=== PATIENT | female | born 1970 | race Caucasian/White ===

== ENCOUNTER 2018-01-24 06:55 | Day surgery (SDC) | payer OTHER ==
[~2018-01-24] VITALS: Ht 170.2 cm; Wt 65.3 kg
[~2018-01-24 06:55] MED LIST: CALC667C PO; CITA10TA4 PO; FOSR1000 CHEW; HYDR-3129 PO; LORA1TAB PO; NOVONP2 SQ; NOVORP2 SQ; OMEP40CA2 PO; ONDA4 PO; PRED1TAB PO; PROM1SUP12 PR; SENS30TA PO; SM A81CH CHEW; TRAM50TA PO; WARF5TAB PO
[2018-01-24] MEDS ORDERED: IOHEXOL 350 MG/ML 100 ML BTL (for Cath Lab) OTHER ONE (06:56)
[2018-01-24 07:23] VITALS: BP 246/85; PULSE 70; RESP 18; TEMP 98; O2SAT 100
[2018-01-24] MEDS ORDERED: SEVEL800 PO (07:42)
[2018-01-24] MEDS ORDERED: WARF-21 PO (07:42)
[2018-01-24] MEDS ORDERED: NOVONP2 SQ (07:42)
[2018-01-24] MEDS ORDERED: OXYC1TAB63 PO (07:42)
[2018-01-24] MEDS ORDERED: CALC0.25 PO (07:42)
[2018-01-24] MEDS ORDERED: HYDR200T3 PO (07:42)
[2018-01-24] MEDS ORDERED: NOVORP2 SQ (07:42)
[2018-01-24] MEDS ORDERED: ASPI81TA23 PO (07:42)
[2018-01-24] MEDS ORDERED: PROM25TA10 PO (07:42)
[2018-01-24] MEDS ORDERED: TRAM50TA PO (07:42)
[2018-01-24] MEDS ORDERED: SENS60TA PO (07:42)
[2018-01-24] MEDS ORDERED: AMLO5TAB2 PO (07:42)
[2018-01-24] MEDS ORDERED: LIDO5%T TOPICAL (07:42)
[2018-01-24] MEDS ORDERED: ATOR80TA45 PO (07:42)
[2018-01-24] MEDS ORDERED: LORA1TAB12 PO (07:42)
[2018-01-24] MEDS ORDERED: GABA300C5 PO (07:42)
[2018-01-24] MEDS ORDERED: ZOFR4TAB PO (07:42)
[2018-01-24] MEDS ORDERED: NS 1000P @30 MLS/HR (KVO) IV SCH (07:45)
[2018-01-24 07:49] LABS: AUTOMATED NEUTROPHIL # 4.3 TH/MM3 (1.8-7.7); BASOPHIL % 0.9 % (0.0-2.0); HEMOGLOBIN 9.2 GM/DL (11.6-15.3); LYMPH % 12.8 % (9.0-44.0); LYMPHOCYTE # 0.7 TH/MM3 (1.0-4.8); MEAN CORPUSCULAR HEMOGLOBIN 32.1 PG (27.0-34.0); MEAN CORPUSCULAR HGB CONC 32.7 % (32.0-36.0); MEAN PLATELET VOLUME 9.4 FL (7.0-11.0); MONOCYTE # 0.6 TH/MM3 (0-0.9); NEUT % 76.3 % (16.0-70.0); PLATELET COUNT 146 TH/MM3 (150-450); RED BLOOD COUNT 2.86 MIL/MM3 (4.00-5.30); RED CELL DISTRIBUTION WIDTH 19.9 % (11.6-17.2); WHITE BLOOD COUNT 5.6 TH/MM3 (4.0-11.0)
[2018-01-24 08:06] LABS: INTERNATIONAL NORMALIZED RATIO 1.3 RATIO; PROTHROMBIN TIME - PATIENT 13.5 SEC (9.8-11.6)
[2018-01-24 08:10] LABS: BICARBONATE 30.4 MEQ/L (21.0-32.0); CALCIUM 8.9 MG/DL (8.5-10.1); CREATININE 7.03 MG/DL (0.50-1.00)
[2018-01-24] MEDS ORDERED: HEPARIN-NS/PF INJ 1,500 ML ONE (08:50)
[2018-01-24] MEDS ORDERED: MIDAZOLAM HCL 2 MG/2 ML VIAL ONE (08:51)
--- NOTE | 2018-01-24 10:14 | CATHPROC ---
[employer] HIS Report Study Information Study Number Admission Scheduled Start Study Start [id number] Jan 24 2018 6:55AM 01/24/2018 Jan 24 2018 8:43AM [facility] Service Cardiac Catheterization Admit Source Facility Department Other [facility] - Project Consultant Physician and Clinical Staff Initial Mohinder Vasquez Electric Train Driver Alton RN, Flavio Recorder Danielle Guadalupe ,RT(R) ScrEmilee Anand,RT(R) Procedures Performed Procedure Location (Site) Vessel Name Coronary Angiograms LCA Left Coronary Coronary Angiograms RCA Right Coronary Coronary Angiograms SVG-OM CIRC Coronary Angiograms BARRERA BARRERA Wire insertion Fem Art (right) Femoral Art Wire insertion Fem Vein (right) Femoral Vein Equipment Time Monomer Recovery Supervisor Description Size Mfg Part Number Used/Scraped WIRE, WHISPER W/HYDROCOAT [id number] 09:29 [employer] 190CM Used 190CM *[id number] 08:55 ANDREW MORGAN SWAN CAROLYN CATHETER FR 7 Used *[id number] TRANSDUCER, TRUWAVE [id number] 08:55 ANDREW MORGAN * Used W/JAMES *[id number] 09:54 [employer] VASC[employer], FR5 CLOSURE SYSTEM FR 5 Used *[id number] 09:55 [employer] VASCADE, FR5 CLOSURE SYSTEM FR 5 Used *[id number] INTRODUCER SET, 08:55 [employer] FR 5 [id number] *[id number] Used MICROPUNCTURE STIFF 534-520T *[id number] [id number] *[id number] 08:55 [employer] BLANKET,WARM AIR CCL * Used *[id number] 08:55 [employer] PACK, CCL CUSTOM * Used *[id number] 08:55 [employer] WIRE, 3MMJ .035 180CM 180CM Used *[id number] 08:55 NAM[employer] MANIFOLD, 4 PORT * Used *[id number] 08:55 [employer] OMNIPAQUE, 350 MG, 150ML 150ML [id number] Used [id number] 08:55 [employer] SHEATH, FR5 TERUMO (10CM) FR 5 Used *[id number] 08:55 [employer] SHEATH, FR7 TERUMO (10CM) FR 7 Used *[id number] History: Current Medications Medication Dosage/Unit Route Frequency Last Date/Time Taken Statins (any) ASA Coumadin Insulin TRAMADOL History: Allergies Allergy Reaction carvedilol gentamicin hydrocodone History: Risk Factors Family History of Hypertension Dyslipidemia Previous [place] Previous Heart Failure Premature CAD Yes Yes No No No Prior Valve Prior PCI Prior CABG Prior CABGDate Surgery Yes No Yes 08/21/2011 Cerebrovascular Peripheral Artery Chronic Lung On Dialysis Diabetes Diabetes Therapy Disease Disease Disease Yes No No No Yes Insulin History: Stress Tests Stress or Imaging Studies Performed Yes Standard Exercise Stress Test No Stress Echo No Stress Test SPECT Stress Test SPECT Result Stress Test SPECT Ischemia Risk/Extent Yes Positive Low Stress Test CMR No Cardiac CTA Coronary Calcium Score No No History: Other Current Smoker No Labs Hgb (g/dl) Hct (%) WBC (l/cumm) Platelets (thousands) 11.60-17.00 35.00-51.00 4.00-11.00 150.00-450.00 9.2 28 5.6 146 Glucose (mg/dl) BUN (mg/dl) Creatinine (mg/dl) BUN:Creatinine (1:x) 74.00-106.00 7.00-18.00 0.50-1.30 10.00-20.00 290 46 7.0 6.6 Na (meq/l) K (meq/l) 136.00-145.00 3.50-5.10 134 3.7 INR (PTT:PT) 0.90-1.10 1.3 CPK-MB (ng/ML) 0.50-3.60 Not Drawn Medication Medication Total Dose (Bolus/Oral) Medication Total Dosage/Unit 1% XYLOCAINE 15 mL FENTANYL 50 mcg VERSED 0.5 mg Medications (Bolus/Oral) Medication Time Given Dosage/Unit Administered By Reason FENTANYL 01/24/2018 9:19:32 AM 50 mcg Flavio Dang RN 50 mcg FENTANYL given in lab by Flavio Dang RN in Left Antecubital via Peripheral IV. Ordered by Mohinder Metz 1% XYLOCAINE 01/24/2018 9:19:52 AM 15 mL Mohinder Obrien 15 mL 1% XYLOCAINE given in lab by Mohinder Obrien in Right Groin via Subcutaneous. Ordered by Mohinder Wagner VERSED 01/24/2018 9:37:11 AM 0.5 mg Flavio Dang RN 0.5 mg VERSED given in lab by Flavio Dang RN in Left Antecubital via Peripheral IV. Ordered by Mohinder Coley Medication (Drip) Medication Time Given Dosage/Unit Concentration/Unit Diluent (ml) Solution IV Solutions 01/24/2018 8:49:06 AM 50 mL (IV) NaCl .9 Patient arrived on IV Solutions via Peripheral IV. Pump/Drip Flow using NaCl .9. Initial Case Assessment Cardiovascular HR Rhythm NIBP 59 sr 202/63 Edema Present Skin color Skin None Normal Warm Dry Circulatory - Right Pulses Dorsalis Pedis Femoral 2 2 Scale (0,1,2,3,4,d) Circulatory - Left Pulses Dorsalis Pedis Femoral 2 2 Scale (0,1,2,3,4,d) Circulatory - Lower Extremities Color Lower Right Color Lower Left Normal Normal Neurological State Oriented to time-place- Alert Moves all extremities person Respiration - General Respiration Rate SpO2 (%) (B/min) 5 99 Final Case Assessment Cardiovascular HR Rhythm NIBP 59 sr 202/63 Edema Present Skin color Skin None Normal Warm Dry Circulatory - Right Pulses Dorsalis Pedis Femoral 2 2 Scale (0,1,2,3,4,d) Circulatory - Left Pulses Dorsalis Pedis Femoral 2 2 Scale (0,1,2,3,4,d) Circulatory - Lower Extremities Color Lower Right Color Lower Left Normal Normal Neurological State Oriented to time-place- Alert Moves all extremities person Respiration - General Respiration Rate SpO2 (%) (B/min) 5 99 Chronological Log Time Study Chronological Log 8:43:08 Patient arrived via Bed. 8:43:09 Patient Name, D.O.B, / Armband Verified By R.N. 8:48:57 Consent signed by the physician and the patient and verified by the Project Consultant staff. 8:48:57 Pre-op and post- op instructions given; patient acknowledges understanding of instructions. 8:48:58 Verbal Stimulation=2 Physical Stimulation=2 Airway=2 Respiration=2 TOTAL=8. (0=absent, 1=li mited, 2=present) 8:49:02 Patient has been NPO for More than 6Hrs. 8:49:02 Skin Breakdown- none per patient 8:49:04 Patient Warmer Placed on the Table. 8:49:05 Fabricio Prominences Protected 8:49:05 IV Warmer Connected To Patient. 8:49:06 A # 20 IV was noted in the Antecubital (left). Grade = 0 8:49:06 Patient arrived on IV Solutions via Peripheral IV. Pump/Drip Flow using NaCl .9. 8:49:07 History and physical on the chart or being dictated. Assessment: Initial Case, HR=59 BPM, Rhythm=sr, QBQN=058/63 mmhg, Edema=None, Color=Normal, Skin = Warm, Dry Right Pulses: Albino Ped=2, Femoral=2 Left Pulses: Albino Ped=2, Femoral=2 8:49:08 Lower Right Extremities: Color=Normal Lower Left Extremities: Color=Normal Neurological: State=Alert, Ox3, HOPKINS Respiration: Resp=5 B/min, SpO2=99 % Vitals capture started with the following parameters, Patient=Adult, Interval=5 min, Initial Pre hovxp=957 mmHg, 8:50:50 Deflation Rate=5 mmHg, Cuff placed on Left Arm 8:51:03 Reference ECG taken 8:52:12 HR=59 bpm, TOLN=085/63 mmhg, SpO2=97.0 %, Resp=8 B/min, Pain=0, Lou=10, Santos=2 8:54:40 MD arrived. 8:56:36 Bilateral groins prepped with 2% chlorhexidine, and draped after a 3 minute waiting time. 8:57:19 HR=58 bpm, LHRD=074/73 mmhg, SpO2=99.0 %, Resp=12 B/min, Pain=0, Lou=10, Santos=2 8:58:08 Pressure channel 1 zeroed. 9:01:43 HR=75 bpm, KIUV=165/63 mmhg, SpO2=98.0 %, Resp=7 B/min, Pain=0, Lou=10, Santos=2 9:06:44 HR=73 bpm, XVIU=139/64 mmhg, SpO2=99.0 %, Resp=8 B/min, Pain=0, Lou=10, Santos=2 9:11:37 HR=69 bpm, SHZA=985/66 mmhg, SpO2=97.0 %, Resp=7 B/min, Pain=0, Lou=10, Santos=2 9:17:23 HR=58 bpm, IFSX=945/70 mmhg, SpO2=97.0 %, Resp=9 B/min, Pain=0, Lou=10, Santos=2 Time Out. Correct patient, correct procedure, correct physician, labs, allergies, and equipment verified with laborer cheesemaking 9:17:37 team present. Fire risk assesment completed (see hard stop sheet for coding). Time Out Concu rred by MD and individual staff in procedure. 9:18:22 Case Start 9::32 50 mcg FENTANYL given in lab by Flavio Dang RN in Left Antecubital via Peripheral IV. Order ed by Mohinder Obrien. 15 mL 1% XYLOCAINE given in lab by Mohinder Obrien in Right Groin via Subcutaneous. Ordered by Micah, 9::52 Mohinder Finch. 9:22:04 Access site was Right Femoral Artery. 9::32 A wire was inserted via Fem Art (right). 9:22:33 HR=63 bpm, AANY=976/76 mmhg, NzS9=365.0 %, Resp=20 B/min, Pain=0, Lou=10, Santos=2 A INTRODUCER SET, MICROPUNCTURE STIFF FR 5 was advanced into the Fem Art (right) using the Percu taneous 9:22:38 technique. A SHEATH, FR5 TERUMO (10CM) FR 5 was exchanged in the Fem Art (right). This was necessary in ord er to 9:22:46 accomodate a larger catheter. 9:23:51 Access site was Right Femoral Vein. 9:24:00 A wire was inserted via Fem Vein (right). A INTRODUCER SET, MICROPUNCTURE STIFF FR 5 was advanced into the Fem Art (right) using the Percu taneous 9:24:21 technique. A SHEATH, FR7 TERUMO (10CM) FR 7 was exchanged in the Fem Art (right). This was necessary in ord er to 9:24:26 accomodate a larger catheter. 9:25:31 An injection in the Fem Art (right) was made through the SHEATH, FR5 TERUMO (10CM) FR 5. A SWAN CAROLYN CATHETER FR 7 was advanced over a wire. OMNIPAQUE, 350 MG, 150ML 150ML was used for 9:26:17 injections. 9:26:40 HR=60 bpm, MHNP=923/79 mmhg, SpO2=99.0 %, Resp=22 B/min, Pain=0, Lou=10, Santos=2 9:29:56 A WIRE, WHISPER W/HYDROCOAT 190CM 190CM was inserted via Fem Vein (right). 9:31:38 Wire removed 9:31:44 HR=64 bpm, PTPG=472/74 mmhg, SpO2=95.0 %, Resp=11 B/min, Pain=0, Lou=10, Santos=2 Recorded Pressure: PCW, HR=62, Condition=Condition 1 9:33:10 (Pulmonary Capillary Wedge) PCW 25/41/23 9:34:14 Saturation: Site=PA (Pulmonary Artery) , O2=65 %, Hgb=9.2 gm/dl, Condition=Condition 1. Used in calculation. 9:35:02 Saturation: Site=Ao (Aorta) , O2=91 %, Hgb=9.2 gm/dl, Condition=Condition 1. Used in calcula tion. Recorded Pressure: MPA, HR=72, Condition=Condition 1 9:35:39 (Main Pulmonary Artery) MPA 48/8/29 Recorded Pressure: RV, HR=65, Condition=Condition 1 9:36:48 (Right Ventricle) RV 55/7/18 9:37:11 0.5 mg VERSED given in lab by Flavio Dang RN in Left Antecubital via Peripheral IV. Ordered by Mohinder Obrien Recorded Pressure: RA, HR=66, Condition=Condition 1 9:37:12 (Right Atrium) RA 16/16/13 9:37:22 Coolin Carolyn Catheter Removed 9:37:26 HR=60 bpm, FXZU=346/71 mmhg, GdL7=917.0 %, Resp=7 B/min, Pain=0, Lou=10, Santos=2 A JR 4.0 INFINITI CATHETER FR 5 was advanced over a wire. OMNIPAQUE, 350 MG, 150ML 150ML was us ed for 9:38:14 injections. Recorded Pressure: LV, HR=67, Condition=Condition 1 9:39:17 (Left Ventricle) LV 153/6/22 Recorded Pressure: LV, Ao, HR=62, Condition=Condition 1 9:39:30 (Left Ventricle) LV 144/5/23, (Aorta) Ao 147/63/96 9:40:05 The RCA was injected and visualized at various angles. OMNIPAQUE, 350 MG, 150ML 150ML used. 9:40:57 The SVG-OM was injected and visualized at various angles. OMNIPAQUE, 350 MG, 150ML 150ML use d. 9:41:46 HR=63 bpm, OZVP=697/72 mmhg, SpO2=97.0 %, Resp=8 B/min, Pain=0, Lou=10, Santos=2 9:46:51 HR=65 bpm, DPNM=539/61 mmhg, SpO2=94.0 %, Resp=6 B/min, Pain=0, Lou=10, Santso=2 9:47:29 The BARRERA was injected and visualized at various angles. OMNIPAQUE, 350 MG, 150ML 150ML used. 9:47:51 Catheter was removed A JL 4.0 INFINITI CATHETER FR 5 was advanced over a wire. OMNIPAQUE, 350 MG, 150ML 150ML was us ed for 9:48:40 injections. 9:50:00 The LCA was injected and visualized at various angles. OMNIPAQUE, 350 MG, 150ML 150ML used. 9:51:46 Catheter was removed 9:51:48 HR=69 bpm, SLIF=129/62 mmhg, SpO2=91.0 %, Resp=0 B/min, Pain=0, Lou=10, Santos=2 9:56:13 VASCADE, FR5 CLOSURE SYSTEM FR 5 placement in the Fem Vein (right) 9:56:16 VASCADE, FR5 CLOSURE SYSTEM FR 5 placement in the Fem Art (right) 9:56:41 HR=67 bpm, FBXP=120/74 mmhg, SpO2=96.0 %, Resp=6 B/min, Pain=0, Lou=10, Santos=2 9:57:35 Case End (Physician broke scrub) Assessment: Final Case, HR=59 BPM, Rhythm=sr, WTDO=350/63 mmhg, Edema=None, Color=Normal, Skin = Warm, Dry Right Pulses: Albino Ped=2, Femoral=2 Left Pulses: Albino Ped=2, Femoral=2 9:57:40 Lower Right Extremities: Color=Normal Lower Left Extremities: Color=Normal Neurological: State=Alert, Ox3, HOPKINS Respiration: Resp=5 B/min, SpO2=99 % 9:57:47 Catheter(s) removed without difficulty 9:57:54 Sterile dressing applied to site 9:57:55 No case complications noted. 9:57:56 Cine recording checked. 9:57:58 Bedside Report will be given. 9:58:06 A Left and Right Heart Cath was performed. 10:01:46 HR=63 bpm, NIBP=88/51 mmhg, SpO2=95.0 %, Resp=13 B/min, Pain=0, Lou=10, Santos=2 10:03:09 NIBP STAT measurement started. 10:05:05 QIDI=533/62 mmhg, Pain=0, Lou=10, Santos=2 10:05:52 Vitals capture stopped. 10:08:27 Patient moved to [facility] End Study - Contrast Media Used In Study Contrast Total Opened (mL) Total Used (mL) Total Wasted (mL) Omnipaque 70 70 0 End Study - Maximum Contrast Load Max Contrast Load (mL) 46.7 End Study - Radiation Exposure Fluoro Time (minutes) 8.9 End Study - Sheaths Sheaths Pulled By Sheath Hold Time (min) Mohinder Obrien End Study - Patient Disposition Complications Transferred To Interventional Outcome No Telemetry Bed No attempt made
[2018-01-24] MEDS ORDERED: MISC INFORMATION XX ONE (10:15)
[2018-01-24] MEDS ORDERED: SODIUM CHLOR 0.9% 250 ML INJ 250 ML IV PRN (10:15)
[2018-01-24] MEDS ORDERED: hydrALAZINE HCL 20 MG/ML VIAL ONE (10:22)
[2018-01-24] MEDS ORDERED: ONDANSETRON HCL 4 MG/2 ML VIAL ONE (14:08)
--- NOTE | 2018-01-24 18:24 | EKG ---
Date Performed: 01/24/2018 Time Performed: 07:40:14 PTAGE: 47 years EKG: Sinus arrhythmia. Prolonged QT interval Left axis deviation Left anterior fascicular block Lateral ST-T changes are nonspecific Abnormal ECG PREVIOUS TRACING : 01/17/2014 04.39 Since the previous tracing, no significant change noted DOCTOR: Asya Marino Interpretating Date/Time 01/24/2018 18:22:43
--- NOTE | 2018-02-01 03:18 | MA ---
cc: Mohinder Obrien DO DATE: 01/24/2018 DATE OF PROCEDURE: 01/24/2018. PROCEDURE: Left heart catheterization, right heart catheterization, coronary angiogram, bypass angiogram, moderate sedation 20 minutes. PREPROCEDURE DIAGNOSIS: Preoperative risk assessment for kidney transplant, abnormal stress test (low risk). POSTPROCEDURE DIAGNOSES: Coronary artery disease with a history of coronary artery bypass graft x2 (2/2 grafts patent), mild pulmonary hypertension (mean pulmonary pressure 29). MEDICATIONS: Fentanyl 50 mcg, versed 0.5 mg. CONTRAST USED: 70 mL. FLUOROSCOPY: 8.9 minutes. MODERATE SEDATION: 20 minutes. FRAILTY SCORE: 3. STRESS TESTING: Low risk. ESTIMATED BLOOD LOSS: 10 mL. PROCEDURAL SUMMARY: Nohelia Olvera is a pleasant 47-year-old female who sees my partner, Dr. Miguel Fleming, in the office and is attempting to be listed for kidney transplant. She underwent pharmacologic nuclear stress testing and, on this, was found to have apical infarction with mild reinier-infarct ischemia, considered a low-risk stress test, but due to the concern for possible ischemia with a high-risk procedure, she was recommended cardiac catheterization. Risks, benefits and alternatives were explained to her and she consented to such. She was brought to the lab and prepped in the usual sterile fashion. The right femoral artery was accessed using a modified Seldinger technique and placement of a 5-Libyan sheath. Right femoral vein was accessed using a modified Seldinger technique and placement of a 6-[place] sheath. Both were easily aspirated and flushed. A [place] catheter was advanced to a wedge position with the help of a moderate-support Whisper wire. Pressures as well as oxygen saturations were done in a standard pullback fashion throughout the heart. [place] catheter was removed. JR4 was advanced over a J-wire to the ascending aorta and across the aortic valve for measurement of left ventricular pressure. This was pulled back across the aortic valve, showing no significant gradient of aortic stenosis. The JR4 was used for selective angiography of the right coronary artery system, saphenous vein graft to obtuse marginal, and BARRERA to LAD. This was exchanged out for a JL4, which was used for selective angiography of the left coronary artery system. The JL4 was removed over a J-wire. As the patient was on Coumadin, Vascade closure was used for both the femoral artery and vein. The patient left the field laborer cardiovascularly stable. FINDINGS: LEFT MAIN: Normal-sized vessel with adequate reflux and 20% disease. It bifurcates into an LAD and circumflex. LAD: Normal-sized vessel with 50% stenosis in the proximal portion and 100% in the mid portion. It gives off 1 small diagonal. LEFT CIRCUMFLEX: Normal-sized vessel with 40% disease in the mid portion. Distally, there is competitive flow noted in the obtuse marginal. RCA: Normal-sized vessel with 20% disease throughout the mid portion. It supplies the PDA as well as multiple posterolateral branches. BARRERA to LAD is patent, which supplies both antegrade and retrograde, supplying a diagonal with no significant disease noted. Saphenous vein graft to obtuse marginal is patent and supplies a large obtuse marginal with an upper and lower branch as well as retrograde into the circumflex. No significant disease noted. HEMODYNAMICS: RA 13. RV 55/7, RVEDP 18. PA 48/8, mean PA 29. Wedge 23. LVEDP 22. IMPRESSION: 1. Preoperative risk assessment for kidney transplant. 2. Abnormal stress test. 3. Coronary artery disease with a history of coronary artery bypass graft x2 (2/2 grafts patent). 4. Mild pulmonary hypertension, most likely type 2 in nature. RECOMMENDATIONS: 1. Ms. Olvera underwent cardiac catheterization and was found to have no significant disease causing her abnormal stress test. She has 2/2 grafts patent to her coronary anatomy. 2. She does have mild pulmonary hypertension, but this is most likely due to an elevated LVEDP, possibly due to her needing her dialysis tomorrow. 3. She will followup with Dr. Fleming for further risk assessment for possible kidney transplant. 4. She will continue on her Coumadin and aspirin for her mitral valve prosthesis. Thank you for allowing me to see Nohelia Olvera. If there are any questions, please do not hesitate to call. POSTOPERATIVE DIAGNOSIS: Mild pulmonary hypertension (mean pulmonary pressure 29). DO UNIQUE Darby/LING , 12:50 AM , 03:16 AM
== END 2018-01-24 15:56 | disposition home or self-care (01) ==
LOC: HDOC 06:55 → HDIC 06:56 → HDOC 15:56
PROVIDERS: ATTEND Nuclear Medicine Nuclear Cardiology
DX: I25.10 Atherosclerotic heart disease of native coronary artery without angina pectoris (principal); I12.0 Hypertensive chronic kidney disease with stage 5 chronic kidney disease or end stage renal disease; N18.6 End stage renal disease; I48.91 Unspecified atrial fibrillation; E10.9 Type 1 diabetes mellitus without complications; Z95.1 Presence of aortocoronary bypass graft; Z95.2 Presence of prosthetic heart valve; Z79.4 Long term (current) use of insulin; Z79.01 Long term (current) use of anticoagulants
CPT/HCPCS: 80048; 82810; 84702; 85025; 85610; 85730; 93005; 93460; 99152; 99153; C1760; C1769; C1893; G0269; J0360; J1644; J2250; J2405; J3010; Q9967